=== PATIENT | male | born 1975 | race Caucasian/White ===

== ENCOUNTER 2017-10-07 13:25 | Emergency (ER) | payer OTHER ==
[2017-10-07] MEDS ORDERED: ACETAMINOPHEN TAB 500 MG TAB PO STA (14:26)
[2017-10-07] MEDS ORDERED: SODIUM CHLORIDE 0.9% 500 ML IV ONE (15:22)
[2017-10-07] MEDS ORDERED: CLINDAMYCIN 600 MG in DEXTROSE 5% IN WATER 50 ML IVPB STA ×2 (15:22)
[2017-10-07] MEDS ORDERED: HYDROcodone/APAP 5-325MG 1 EACH TAB PO STA (15:59)
--- NOTE | 2017-10-07 15:59 | ED ---
General Adult HPI - General Chief complaint: Fever Stated complaint: Fever Time Seen by Provider: 10/07/17 15:14 Source: patient Mode of arrival: wheelchair Limitations: no limitations - History of Present Illness Initial comments: This is a 42-year-old male with a history of multiple dental problems who presents emergency room for high fevers and left sided lower jaw pain. He states it started a few days ago and is gradually worsened. He has an appointment with his dentist in 3 days however stated that he get so bad that he decided come emergency department. He was to fevers at home and chills. He denies any swelling or purulent drainage. He denies any cough or shortness of breath. No lightheadedness or dizziness. No other complaints. - Related Data Home Medications Medication Instructions Recorded Confirmed clonazePAM [KlonoPIN] 0.5 mg PO BID 11/22/14 10/07/17 Albuterol Sulfate [Proair Hfa] 1 - 2 puff INHALATION RT-QID PRN 10/07/17 Ibuprofen [Motrin] 800 mg PO TID PRN 10/07/17 10/07/17 Omeprazole [PriLOSEC] 20 mg PO DAILY 10/07/17 10/07/17 Previous Rx's Medication Instructions Recorded Clindamycin HCl [Cleocin] 600 mg PO Q8H #42 cap 10/07/17 HYDROcodone/APAP 5-325MG [[place] 1 tab PO Q6HR PRN #10 tab 10/07/17 5-325] Allergies Allergy/AdvReac Type Severity Reaction Status Date / Time Penicillins Allergy Anaphylaxis Verified 10/07/17 15:31 Review of Systems ROS Statement: Those systems with pertinent positive or pertinent negative responses have been documented in the HPI. ROS Other: All systems not noted in ROS Statement are negative. Past Medical History Past Medical History: Asthma History of Any Multi-Drug Resistant Organisms: None Reported Past Surgical History: No Surgical Hx Reported Past Psychological History: ADD/ADHD, Anxiety Smoking Status: Former smoker Past Alcohol Use History: None Reported Past Drug Use History: Marijuana General Exam - General Exam Comments Initial Comments: Constitutional: Awake alert Appears comfortable Head: Normocephalic atraumatic Eyes: no conjunctival injection No scleral icterus EOMI ENT: Oropharynx is nonerythematous, there are multiple dental caries to the low incisors and lateral incisors on the lower jaw. There is surrounding erythema and inflammation around the teeth. There is no pocket or abscess is identified in the buccal mucosa. No abscess along the gingiva. The rest of the patient's teeth are removed. Neck: No JVD Supple Heart: Regular rate rhythm normal S1-S2 no murmurs Lungs: Clear to auscultation bilaterally No wheezing No rales Abdomen: Soft nondistended nontender Extremities: Non edematous DP pulses intact Radial pulses intact Neuro: A&Ox3 No focal neurologic deficits Psych: Appropriate mood and affect Limitations: no limitations Course Vital Signs 10/07/17 10/07/17 14:23 16:21 Temperature 103.1 F H 98.2 F Pulse Rate 102 H 90 Respiratory 20 16 Rate Blood Pressure 110/61 135/75 O2 Sat by Pulse 99 98 Oximetry Medical Decision Making - Medical Decision Making This is a 42-year-old male who presented for left jaw pain. The patient did not have evidence for abscess on exam. Does have a leukocytosis and was febrile and thus patient was stated on an IV antibiotics. The patient is to be sent home on clindamycin 600 mg 3 times a day. He has no point with his dentist in a few days. I told him to continue to go see his dentist however was given oral surgery in case they were unable to treat him. Told to return if worsening or change symptoms requested transfer. - Lab Data Result diagrams: 10/07/17 15:56 10/07/17 15:56 Lab Results 10/07/17 10/07/17 Range/Units 15:56 15:56 WBC 15.6 H (3.8-10.6) k/uL RBC 4.30 (4.30-5.90) m/uL Hgb 13.8 (13.0-17.5) gm/dL Hct 40.7 (39.0-53.0) % MCV 94.7 (80.0-100.0) fL MCH 32.2 (25.0-35.0) pg MCHC 33.9 (31.0-37.0) g/dL RDW 13.6 (11.5-15.5) % Plt Count 182 (150-450) k/uL Neutrophils % 88 % Lymphocytes % 3 % Monocytes % 7 % Eosinophils % 1 % Basophils % 0 % Neutrophils # 13.7 H (1.3-7.7) k/uL Lymphocytes # 0.5 L (1.0-4.8) k/uL Monocytes # 1.2 H (0-1.0) k/uL Eosinophils # 0.1 (0-0.7) k/uL Basophils # 0.0 (0-0.2) k/uL Sodium 136 L (137-145) mmol/L Potassium 3.8 (3.5-5.1) mmol/L Chloride 100 (98-107) mmol/L Carbon Dioxide 24 (22-30) mmol/L Anion Gap 12 mmol/L BUN 5 L (9-20) mg/dL Creatinine 0.66 (0.66-1.25) mg/dL Est GFR (MDRD) Af Amer >60 (>60 ml/min/1.73 sqM) Est GFR (MDRD) Non-Af >60 (>60 ml/min/1.73 sqM) Glucose 107 H (74-99) mg/dL Calcium 8.8 (8.4-10.2) mg/dL Total Bilirubin 2.0 H (0.2-1.3) mg/dL AST 21 (17-59) U/L ALT 36 (21-72) U/L Alkaline Phosphatase 65 (38-126) U/L Total Protein 6.3 (6.3-8.2) g/dL Albumin 4.0 (3.5-5.0) g/dL Disposition Clinical Impression: Periodontitis Disposition: HOME SELF-CARE Condition: Stable Instructions: Toothache (ED) Prescriptions: Clindamycin HCl [Cleocin] 600 mg PO Q8H #42 cap HYDROcodone/APAP 5-325MG [[place] 5-325] 1 tab PO Q6HR PRN #10 tab PRN Reason: Pain Referrals: Nonstaff,Physician [Primary Care Provider] - 1-2 days Obed Chowdhury DDS [STAFF PHYSICIAN] - 1-2 days
[2017-10-07 16:09] LABS: Basophils % (A) 0 %; Eosinophils # (A) 0.1 k/uL (0-0.7); Eosinophils % (A) 1 %; HCT 40.7 % (39.0-53.0); HGB 13.8 gm/dL (13.0-17.5); Lymphocytes # (A) 0.5 k/uL (1.0-4.8); Lymphocytes % (A) 3 %; MCH 32.2 pg (25.0-35.0); MCHC 33.9 g/dL (31.0-37.0); MCV 94.7 fL (80.0-100.0); Mean Platelet Volume 7.4; Monocytes # (A) 1.2 k/uL (0-1.0); Monocytes % (A) 7 %; Neutrophils # (A) 13.7 k/uL (1.3-7.7); Neutrophils % (A) 88 %; Platelet Count 182 k/uL (150-450); RDW 13.6 % (11.5-15.5); WBC 15.6 k/uL (3.8-10.6)
[2017-10-07 16:19] LABS: ALT 36 U/L (21-72); AST 21 U/L (17-59); Alkaline Phosphatase 65 U/L (38-126); Anion Gap 12 mmol/L; Blood Urea Nitrogen 5 mg/dL (9-20); Calcium 8.8 mg/dL (8.4-10.2); Carbon Dioxide 24 mmol/L (22-30); Chloride 100 mmol/L (98-107); Glucose 107 mg/dL (74-99); Potassium 3.8 mmol/L (3.5-5.1); Sodium 136 mmol/L (137-145); Total Protein 6.3 g/dL (6.3-8.2)
[2017-10-07 16:55] VITALS: BP 125/78; PULSE 89; RESP 18; TEMP 97.5
== END 2017-10-07 17:22 | disposition home or self-care (01) ==
LOC: EC 13:25
DX: K05.30 Chronic periodontitis, unspecified (principal); D72.829 Elevated white blood cell count, unspecified; K02.9 Dental caries, unspecified; R50.9 Fever, unspecified; Z87.891 Personal history of nicotine dependence; Z79.899 Other long term (current) drug therapy; Z88.0 Allergy status to penicillin
CPT/HCPCS: 36415; 80053; 85025; 96365; 99283

== ENCOUNTER 2018-01-18 11:13 | Emergency (ER) | payer OTHER ==
[2018-01-18] MEDS ORDERED: IPRATROPIUM-ALBUTEROL 3 ML NEB INHALATION STA (11:28)
--- NOTE | 2018-01-18 11:30 | ED ---
URI HPI - General Chief Complaint: Upper Respiratory Infection Stated Complaint: URI Time Seen by Provider: 01/18/18 11:18 Source: patient, RN notes reviewed Mode of arrival: ambulatory Limitations: no limitations - History of Present Illness Initial Comments: 42-year-old male presents emergency Department with chief complaint of cough congestion. Patient states symptoms started last Monday. Patient states he just finished azithromycin yesterday states he is not feeling better he states that she feels worse. Patient does have history of asthma states that he occasionally smokes. Patient states that he's had mild nasal congestion, postnasal drainage or productive cough. His cough is worse when he lays down. He was given Tessalon Perles minimal relief. He did try some NyQuil with no relief. Patient reports on-and-off fever and chills. Denies chest pain, headache, dizziness, nausea, vomiting diarrhea constipation. - Related Data Home Medications Medication Instructions Recorded Confirmed clonazePAM [KlonoPIN] 0.5 mg PO BID 11/22/14 01/18/18 Albuterol Sulfate [Proair Hfa] 1 - 2 puff INHALATION RT-QID PRN 10/07/17 Ibuprofen [Motrin] 800 mg PO TID PRN 10/07/17 01/18/18 Omeprazole [PriLOSEC] 20 mg PO DAILY 10/07/17 01/18/18 Fluticasone Nasal [place] [Flonase 2 spr EA NOSTRIL DAILY 01/18/18 01/18/18 Nasal [place]] Allergies Allergy/AdvReac Type Severity Reaction Status Date / Time Penicillins Allergy Anaphylaxis Verified 01/18/18 11:28 Review of Systems ROS Statement: Those systems with pertinent positive or pertinent negative responses have been documented in the HPI. ROS Other: All systems not noted in ROS Statement are negative. Past Medical History Past Medical History: Asthma History of Any Multi-Drug Resistant Organisms: None Reported Past Surgical History: No Surgical Hx Reported Past Psychological History: ADD/ADHD, Anxiety Smoking Status: Former smoker Past Alcohol Use History: None Reported Past Drug Use History: Marijuana General Exam Limitations: no limitations General appearance: alert, in no apparent distress Head exam: Present: atraumatic, normocephalic, normal inspection Eye exam: Present: normal appearance, PERRL, EOMI. Absent: scleral icterus, conjunctival injection, periorbital swelling ENT exam: Present: normal exam, normal oropharynx, mucous membranes moist Neck exam: Present: normal inspection, full ROM. Absent: tenderness, meningismus, lymphadenopathy Respiratory exam: Present: rhonchi. Absent: normal lung sounds bilaterally, respiratory distress, wheezes, rales, stridor Cardiovascular Exam: Present: regular rate, normal rhythm, normal heart sounds. Absent: systolic murmur, diastolic murmur, rubs, gallop, clicks Skin exam: Present: warm, dry, intact, normal color. Absent: rash Course Vital Signs 01/18/18 01/18/18 01/18/18 11:15 11:58 12:14 Temperature 98.0 F Pulse Rate 100 93 Respiratory 20 18 20 Rate Blood Pressure 128/79 O2 Sat by Pulse 100 Oximetry 01/18/18 12:24 Temperature Pulse Rate 93 Respiratory Rate Blood Pressure O2 Sat by Pulse Oximetry Medical Decision Making - Medical Decision Making 42-year-old male present emergency department for cough congestion. Patient's influenza B+. Chest x-ray unremarkable. Patient will be discharged at this time his symptoms started 5 days ago. Patient will continue time Motrin over- the-counter along with [id number] cough and cold medications. Return parameters were discussed. - Lab Data Lab Results 01/18/18 Range/Units 11:45 Influenza Type A RNA Not Detected (Not Detectd) Influenza Type B (PCR) Detected H (Not Detectd) Disposition Clinical Impression: Influenza Disposition: HOME SELF-CARE Condition: Stable Instructions: Influenza (ED) Additional Instructions: Please return to the Emergency Department if symptoms worsen or any other concerns. Is patient prescribed a controlled substance at d/c from ED?: No Referrals: Nonstaff,Physician [Primary Care Provider] - 1-2 days Time of Disposition: 12:34
--- NOTE | 2018-01-18 11:53 | XR ---
EXAMINATION TYPE: XR chest 2V DATE OF EXAM: 01/18/2018 COMPARISON: 01/08/2015 HISTORY: Cough, congestion, fever, and body aches TECHNIQUE: Frontal and lateral views of the chest are obtained. FINDINGS: There is no focal air space opacity, pleural effusion, or pneumothorax seen. The cardiac silhouette size is within normal limits. The osseous structures are intact. IMPRESSION: No acute cardiopulmonary process.
[2018-01-18 12:40] VITALS: BP 132/74; PULSE 98; RESP 18; TEMP 98.8
== END 2018-01-18 12:38 | disposition home or self-care (01) ==
LOC: EC 11:13
DX: J10.1 Influenza due to other identified influenza virus with other respiratory manifestations (principal); J45.909 Unspecified asthma, uncomplicated; F41.9 Anxiety disorder, unspecified; F17.200 Nicotine dependence, unspecified, uncomplicated; Z79.51 Long term (current) use of inhaled steroids; Z79.899 Other long term (current) drug therapy; Z88.0 Allergy status to penicillin
CPT/HCPCS: 71046; 87502; 94640; 99284

== ENCOUNTER 2020-08-14 08:43 | Emergency (ER) | payer OTHER ==
[2020-08-14 08:57] VITALS: RESP 18; TEMP 99.1
[2020-08-14] MEDS ORDERED: KETOROLAC 15 MG/ML 1 ML VIAL IM STA (09:19)
[2020-08-14] MEDS ORDERED: ACET/COD 300 MG/30 MG STARTER PACK 6 TAB BTL PO STA (09:19)
[2020-08-14] MEDS ORDERED: ORPHENADRINE 30 MG/ML 2 ML VIAL IM STA (09:19)
[2020-08-14 09:45] LABS: Appearance,Urine Clear (Clear); Bilirubin,Urine Negative (Negative); Blood,Urine Negative (Negative); Color,Urine Light Yellow; Glucose,Urine (UA) Negative (Negative); Ketones,Urine Negative (Negative); Leukocyte Esterase,Urine Negative (Negative); Nitrite,Urine Negative (Negative); PH, Urine 7.5 (5.0-8.0); Protein,Urine Negative (Negative); Specific Gravity,Urine 1.004 (1.001-1.035); Urobilinogen,Urine <2.0 mg/dL (<2.0)
--- NOTE | 2020-08-14 09:53 | ED ---
Back Pain HPI - General Chief Complaint: Back Pain/Injury Stated Complaint: back pain Time Seen by Provider: 08/14/20 09:04 Source: patient, RN notes reviewed, old records reviewed Limitations: no limitations - History of Present Illness Initial Comments: 45-year-old male presents return today with chronic lower back pain. He reports is an acute exacerbation over the past 4 days. 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 Patient reports his been told she's had degenerative disease. Denies any fall or trauma to the back. Has not had recent imaging on his back in many years. Patient states that he's been taking Motrin without any relief for pain. Does report some occasional radiculopathy symptoms on bilateral legs. Denies saddle anesthesia. - Related Data Home Medications Medication Instructions Recorded Confirmed clonazePAM [KlonoPIN] 0.25 mg PO DAILY 11/22/14 08/14/20 Albuterol Sulfate [Proair Hfa] 1 - 2 puff INHALATION RT-QID PRN 10/07/17 08/14/20 Ibuprofen [Motrin] 800 mg PO TID PRN 10/07/17 08/14/20 Omeprazole [PriLOSEC] 20 mg PO AC-BID 10/07/17 08/14/20 Fluticasone Nasal [place] [Flonase 2 spr EA NOSTRIL DAILY PRN 01/18/18 08/14/20 Nasal [place]] Cetirizine HCl 10 mg PO DAILY 08/14/20 08/14/20 Ondansetron [Zofran] 4 mg PO Q12H PRN 08/14/20 08/14/20 clonazePAM [KlonoPIN] 0.125 mg PO DAILY@1500 08/14/20 08/14/20 Previous Rx's Medication Instructions Recorded Cyclobenzaprine [Flexeril] 10 mg PO TID #12 tab 08/14/20 Ibuprofen [Motrin] 600 mg PO Q8HR PRN #20 tab 08/14/20 dexAMETHasone [Dexamethasone] 0.75 mg PO DAILY #12 tab 08/14/20 Allergies Allergy/AdvReac Type Severity Reaction Status Date / Time Penicillins Allergy Anaphylaxis Verified 08/14/20 10:00 Review of Systems ROS Statement: Those systems with pertinent positive or pertinent negative responses have been documented in the HPI. ROS Other: All systems not noted in ROS Statement are negative. Past Medical History Past Medical History: Asthma Additional Past Medical History / Comment(s): back pain -ddd History of Any Multi-Drug Resistant Organisms: None Reported Past Surgical History: No Surgical Hx Reported Past Psychological History: ADD/ADHD, Anxiety Smoking Status: Current every day smoker Past Alcohol Use History: None Reported Past Drug Use History: Marijuana General Exam - General Exam Comments Initial Comments: 45 year old male, no acute distress. Limitations: no limitations General appearance: alert, in no apparent distress Head exam: Present: atraumatic, normocephalic, normal inspection Eye exam: Present: normal appearance, PERRL, EOMI. Absent: scleral icterus, conjunctival injection, periorbital swelling ENT exam: Present: normal exam, mucous membranes moist Neck exam: Present: normal inspection. Absent: tenderness, meningismus, lymphadenopathy Respiratory exam: Present: normal lung sounds bilaterally. Absent: respiratory distress, wheezes, rales, rhonchi, stridor Cardiovascular Exam: Present: regular rate, normal rhythm, normal heart sounds. Absent: systolic murmur, diastolic murmur, rubs, gallop, clicks GI/Abdominal exam: Present: soft, normal bowel sounds. Absent: distended, tenderness, guarding, rebound, rigid Extremities exam: Present: normal inspection, full ROM, normal capillary refill. Absent: tenderness, pedal edema, joint swelling, calf tenderness Back exam: Present: normal inspection Neurological exam: Present: alert, oriented X3, CN II-XII intact Psychiatric exam: Present: normal affect, normal mood Skin exam: Present: warm, dry, intact, normal color. Absent: rash Course Vital Signs 08/14/20 08:55 Temperature 99.1 F Pulse Rate 95 Respiratory 18 Rate Blood Pressure 108/65 O2 Sat by Pulse 100 Oximetry Medical Decision Making - Medical Decision Making 45-year-old male presents emergency department today concern for lower back pain. Patient reports that he's had chronic back pain for 12 years. Patient has been taking without any relief of pain. At this time patient's back exam shows tenderness over spine. X-ray shows no evidence of acute fracture. Given IM Toradol and Norflex and by mouth starter pack of pain medication. Advised Patient to apply heat and ice to the back and take medication as prescribed. Discussed return parameters. - Lab Data Lab Results 08/14/20 Range/Units 09:38 Urine Color Light Yellow Urine Appearance Clear (Clear) Urine pH 7.5 (5.0-8.0) Ur Specific [place] 1.004 (1.001-1.035) Urine Protein Negative (Negative) Urine Glucose (UA) Negative (Negative) Urine Ketones Negative (Negative) Urine Blood Negative (Negative) Urine Nitrite Negative (Negative) Urine Bilirubin Negative (Negative) Urine Urobilinogen <2.0 (<2.0) mg/dL Ur Leukocyte Esterase Negative (Negative) - Radiology Data Radiology results: report reviewed Normal Three-view lumbar spine Disposition Clinical Impression: Back pain Disposition: ADMITTED IP TO THIS [facility] Condition: Good Instructions (If sedation given, give patient instructions): Acute Low Back Pain (ED) Additional Instructions: Please use medication as discussed. Please follow up with family doctor if symptoms have not improved over the next two days. Please return to the emergency room if your symptoms increase or worsen or for any other concerns. Prescriptions: dexAMETHasone [Dexamethasone] 0.75 mg PO DAILY #12 tab Cyclobenzaprine [Flexeril] 10 mg PO TID #12 tab Ibuprofen [Motrin] 600 mg PO Q8HR PRN #20 tab PRN Reason: Pain Is patient prescribed a controlled substance at d/c from ED?: No Referrals: Nonstaff,Physician [Primary Care Provider] - 1-2 days Time of Disposition: 10:23
--- NOTE | 2020-08-14 09:53 | XR ---
EXAMINATION TYPE: XR lumbar spine 2 or 3V DATE OF EXAM: 08/14/2020 COMPARISON: None HISTORY: Low back pain TECHNIQUE: 3 view lumbar spine FINDINGS: There 5 lumbar-type vertebral bodies. Pedicles are intact. Disc heights are preserved. Vert ebral body heights are preserved. Alignment is normal. IMPRESSION: 1. Normal 3 view lumbar spine.
[2020-08-14 10:42] VITALS: BP 125/85; PULSE 84
== END 2020-08-14 10:43 | disposition other institution (70) ==
LOC: EC 08:43
DX: M54.5 Low back pain (principal); J45.909 Unspecified asthma, uncomplicated; F41.9 Anxiety disorder, unspecified; F90.9 Attention-deficit hyperactivity disorder, unspecified type; F17.200 Nicotine dependence, unspecified, uncomplicated; Z79.899 Other long term (current) drug therapy
CPT/HCPCS: 81003; 72100; 99285; 96372 ×2; J2360; J1885

== ENCOUNTER 2021-06-05 07:48 | Emergency (ER) | payer OTHER ==
[2021-06-05 07:52] VITALS: BP 146/83; PULSE 81; RESP 20; TEMP 97.4
[2021-06-05] MEDS ORDERED: ORPHENADRINE 30 MG/ML 2 ML VIAL IM STA (08:17)
[2021-06-05] MEDS ORDERED: KETOROLAC 15 MG/ML 1 ML VIAL IM STA (08:17)
[2021-06-05] MEDS ORDERED: predniSONE 50 MG TAB PO STA (08:18)
--- NOTE | 2021-06-05 08:20 | ED ---
General Adult HPI - General Chief complaint: Back Pain/Injury Stated complaint: back injury Time Seen by Provider: 06/05/21 07:53 Source: patient, RN notes reviewed Mode of arrival: ambulatory Limitations: no limitations - History of Present Illness Initial comments: 46-year-old male presents to the emergency room for a chief complaint of back pain. Patient states that he has chronic degenerative disc disease and back pain for the past 13 years. However 3 days ago he was at work and was trying to lift a heavy box. States it started to slip and he jerks the box upwards and felt a sudden pain in his low back. States over the past couple days he has had a sharp shooting pain that radiates down the left leg as well as tingling of the left foot. Patient states he has had sciatica before, feel similar. Patient denies any new onset bladder or bowel changes, saddle anesthesia, fevers or chills. Denies weakness in the leg but does admit is painful to put weight on the left leg. Patient states she takes Motrin for pain - Related Data Home Medications Medication Instructions Recorded Confirmed clonazePAM [KlonoPIN] 0.25 mg PO DAILY 11/22/14 08/14/20 Albuterol Sulfate [Proair Hfa] 1 - 2 puff INHALATION RT-QID PRN 10/07/17 08/14/20 Ibuprofen [Motrin] 800 mg PO TID PRN 10/07/17 08/14/20 Omeprazole [PriLOSEC] 20 mg PO AC-BID 10/07/17 08/14/20 Fluticasone Nasal [place] [Flonase 2 spr EA NOSTRIL DAILY PRN 01/18/18 08/14/20 Nasal [place]] Cetirizine HCl 10 mg PO DAILY 08/14/20 08/14/20 Ondansetron [Zofran] 4 mg PO Q12H PRN 08/14/20 08/14/20 clonazePAM [KlonoPIN] 0.125 mg PO DAILY@1500 08/14/20 08/14/20 Previous Rx's Medication Instructions Recorded Cyclobenzaprine [Flexeril] 10 mg PO TID #12 tab 08/14/20 Ibuprofen [Motrin] 600 mg PO Q8HR PRN #20 tab 08/14/20 dexAMETHasone 0.75 mg PO DAILY #12 tab 08/14/20 Cyclobenzaprine [Flexeril] 10 mg PO TID #20 tab 06/05/21 predniSONE 50 mg PO DAILY #5 tablet 06/05/21 Allergies Allergy/AdvReac Type Severity Reaction Status Date / Time Penicillins Allergy Anaphylaxis Verified 06/05/21 07:52 Review of Systems ROS Statement: Those systems with pertinent positive or pertinent negative responses have been documented in the HPI. ROS Other: All systems not noted in ROS Statement are negative. Past Medical History Past Medical History: Asthma Additional Past Medical History / Comment(s): back pain -ddd History of Any Multi-Drug Resistant Organisms: None Reported Past Surgical History: No Surgical Hx Reported Past Psychological History: ADD/ADHD, Anxiety Smoking Status: Current every day smoker Past Alcohol Use History: None Reported Past Drug Use History: Marijuana General Exam Limitations: no limitations General appearance: alert, in no apparent distress Head exam: Present: atraumatic Eye exam: Present: normal appearance, PERRL, EOMI. Absent: scleral icterus, conjunctival injection ENT exam: Present: normal exam, mucous membranes moist Neck exam: Present: normal inspection, full ROM. Absent: tenderness Respiratory exam: Present: normal lung sounds bilaterally. Absent: respiratory distress, wheezes Cardiovascular Exam: Present: regular rate, normal rhythm, normal heart sounds GI/Abdominal exam: Present: soft, normal bowel sounds. Absent: distended, tenderness Neurological exam: Present: alert Course Vital Signs 06/05/21 07:50 Temperature 97.4 F L Pulse Rate 81 Respiratory 20 Rate Blood Pressure 146/83 O2 Sat by Pulse 100 Oximetry Medical Decision Making - Medical Decision Making vitals are stable. Patient is well appearing. Neurovascular status intact in the left lower extremity. DP pulse 2+ left leg. Capillary refill less than 2 seconds. Positive straight leg raise test. Strength 5 out of 5 in bilateral lower extremities. Denies fevers or chills, saddle anesthesia, weakness of the legs, or fevers. X-ray from earlier this year was reviewed which was normal. Symptoms are consistent with acute on chronic back pain with radicular symptoms. At this time patient will be started on prednisone and Tylenol 3. We'll hold NSAIDs until prednisone is done. Patient will follow up with his doctor. He will return here for any worsening symptoms. He will also be given referral to orthopedics as he will likely need another MRI. Disposition Clinical Impression: Acute exacerbation of chronic low back pain, Lumbar radicular pain Disposition: HOME SELF-CARE Condition: Good Instructions (If sedation given, give patient instructions): Sciatica (ED) Additional Instructions: Take Tylenol instead of Motrin for pain especially on the days that you are taking prednisone. If pain is severe take Tylenol 3. Take muscle relaxer as needed but do not drive or operate machinery while taking this. Follow up with orthopedics. Given any worsening symptoms return to the emergency room. Prescriptions: Cyclobenzaprine [Flexeril] 10 mg PO TID #20 tab predniSONE 50 mg PO DAILY #5 tablet Is patient prescribed a controlled substance at d/c from ED?: No Referrals: Nonstaff,Physician [Primary Care Provider] - 1-2 days Tommy Bruno DO [Doctor of Osteopathic Medicine] - 1-2 days Time of Disposition: 09:01
[2021-06-05] MEDS ORDERED: ACET/COD 300 MG/30 MG STARTER PACK 6 TAB BTL PO STA (09:00)
== END 2021-06-05 09:03 | disposition home or self-care (01) ==
LOC: EC 07:48
DX: G89.29 Other chronic pain (principal); M54.16 Radiculopathy, lumbar region; J45.909 Unspecified asthma, uncomplicated; F12.90 Cannabis use, unspecified, uncomplicated; F17.200 Nicotine dependence, unspecified, uncomplicated; Z79.51 Long term (current) use of inhaled steroids; Z79.899 Other long term (current) drug therapy
CPT/HCPCS: 96372 ×2; 99283; J2360; J1885; J7512

== ENCOUNTER 2021-12-13 08:10 | Emergency (ER) | payer OTHER ==
[2021-12-13 08:13] VITALS: BP 138/86; PULSE 83; RESP 18; TEMP 97.6
--- NOTE | 2021-12-13 08:38 | ED ---
Neck Injury/Pain HPI - General Chief Complaint: Neck Pain/Injury Stated Complaint: Neck Pain Time Seen by Provider: 12/13/21 08:13 Source: patient, RN notes reviewed Mode of arrival: ambulatory Limitations: no limitations - History of Present Illness Initial Comments: This a 46-year-old male presents emergency Department chief complaint of left sided neck, shoulder pain. Patient's states symptoms started over the last 2-3 weeks states progressively getting worse. He states it does come and go at times but states is exacerbated by movement. Patient states he had an issue presents for 7 years ago which she saw a neurosurgeon at a time but no acute structural issues had physical therapy states things got greatly improved. Patient states he has pain rates from left-sided neck and left shoulder left arm. He states that it spasms has increasing pain no associated weakness no headache no blurred vision other associated complaints. - Related Data Home Medications Medication Instructions Recorded Confirmed clonazePAM [KlonoPIN] 0.25 mg PO DAILY 11/22/14 08/14/20 Albuterol Sulfate [Proair Hfa] 1 - 2 puff INHALATION RT-QID PRN 10/07/17 08/14/20 Ibuprofen [Motrin] 800 mg PO TID PRN 10/07/17 08/14/20 Omeprazole [PriLOSEC] 20 mg PO AC-BID 10/07/17 08/14/20 Fluticasone Nasal [place] [Flonase 2 spr EA NOSTRIL DAILY PRN 01/18/18 08/14/20 Nasal [place]] Cetirizine HCl 10 mg PO DAILY 08/14/20 08/14/20 Ondansetron [Zofran] 4 mg PO Q12H PRN 08/14/20 08/14/20 clonazePAM [KlonoPIN] 0.125 mg PO DAILY@1500 08/14/20 08/14/20 Previous Rx's Medication Instructions Recorded Cyclobenzaprine [Flexeril] 10 mg PO TID #12 tab 08/14/20 Ibuprofen [Motrin] 600 mg PO Q8HR PRN #20 tab 08/14/20 dexAMETHasone 0.75 mg PO DAILY #12 tab 08/14/20 Cyclobenzaprine [Flexeril] 10 mg PO TID #20 tab 06/05/21 predniSONE 50 mg PO DAILY #5 tablet 06/05/21 Cyclobenzaprine [Flexeril] 10 mg PO TID PRN #15 tab 12/13/21 predniSONE 50 mg PO DAILY #5 tab 12/13/21 Allergies Allergy/AdvReac Type Severity Reaction Status Date / Time Penicillins Allergy Anaphylaxis Verified 12/13/21 08:13 Review of Systems ROS Statement: Those systems with pertinent positive or pertinent negative responses have been documented in the HPI. ROS Other: All systems not noted in ROS Statement are negative. Past Medical History Past Medical History: Asthma Additional Past Medical History / Comment(s): back pain -ddd History of Any Multi-Drug Resistant Organisms: None Reported Past Surgical History: No Surgical Hx Reported Past Psychological History: ADD/ADHD, Anxiety Smoking Status: Current every day smoker Past Alcohol Use History: None Reported Past Drug Use History: Marijuana General Exam Limitations: no limitations General appearance: alert, in no apparent distress Head exam: Present: atraumatic, normocephalic, normal inspection Eye exam: Present: normal appearance, PERRL, EOMI. Absent: scleral icterus, conjunctival injection, periorbital swelling ENT exam: Present: normal exam, normal oropharynx, mucous membranes moist Neck exam: Present: normal inspection, tenderness (Left trapezius left cervical paraspinal), full ROM. Absent: meningismus, lymphadenopathy Respiratory exam: Present: normal lung sounds bilaterally. Absent: respiratory distress, wheezes, rales, rhonchi, stridor Cardiovascular Exam: Present: regular rate, normal rhythm, normal heart sounds. Absent: systolic murmur, diastolic murmur, rubs, gallop, clicks Extremities exam: Present: normal inspection, full ROM, normal capillary refill. Absent: tenderness, pedal edema, joint swelling, calf tenderness Back exam: Present: full ROM. Absent: tenderness, paraspinal tenderness, vertebral tenderness Neurological exam: Present: alert, oriented X3, CN II-XII intact, reflexes normal. Absent: motor sensory deficit Skin exam: Present: warm, dry, intact, normal color. Absent: rash Course Vital Signs 12/13/21 08:11 Temperature 97.6 F Pulse Rate 83 Respiratory 18 Rate Blood Pressure 138/86 O2 Sat by Pulse 100 Oximetry Medical Decision Making - Medical Decision Making CT of the cervical spine shows severe degenerative changes C5-C6, this is consistent with patient's radicular symptoms left arm, there is some inflammatory mucosal thickening of the left maxillary sinus. Patient does also have noticed sebaceous cysts which is seen on exam. Patient will follow-up with on-call orthospine we discharged with medications and return parameters were discussed. Disposition Clinical Impression: Degenerative cervical disc, Degenerative cervical spinal stenosis Disposition: HOME SELF-CARE Condition: Stable Instructions (If sedation given, give patient instructions): Cervical Radiculopathy (ED) Additional Instructions: Please return to the Emergency Department if symptoms worsen or any other concerns. Prescriptions: Cyclobenzaprine [Flexeril] 10 mg PO TID PRN #15 tab PRN Reason: Muscle Spasm predniSONE 50 mg PO DAILY #5 tab Is patient prescribed a controlled substance at d/c from ED?: No Referrals: Nonstaff,Physician [Primary Care Provider] - 1-2 days Alicia Blas DO [Doctor of Osteopathic Medicine] - 1-2 days Tommy Bruno DO [Doctor of Osteopathic Medicine] - 1-2 days Time of Disposition: 09:11
--- NOTE | 2021-12-13 08:54 | CT ---
EXAMINATION TYPE: CT cervical spine wo con DATE OF EXAM: 12/13/2021 COMPARISON: None available HISTORY: Neck pain, left radiculopathy. CT DLP: 325.8 mGycm Automated exposure control for dose reduction was used. TECHNIQUE: CT scan of the cervical spine is obtained without contrast, axial images are obtained, sa gittal and coronal reformatted images are also reviewed. FINDINGS: Preserved cervical curvature. No significant anterolisthesis or retrolisthesis. No definite vertebral body collapse or acute displaced fracture. Unremarkable atlantoaxial and atlantooccipital articulati ons. No facet dislocation or significant subluxation. Mild degenerative changes seen at C5-6 level with opposing endplate osteophytosis, slightly degenerat ed disc and mild uncovertebral osteoarthropathy. No significant facet osteoarthropathy. At C5-6 level: Posterior disc osteophyte complex, causing moderate to severe central spinal canal orquidea nosis and moderate bilateral neuroforaminal stenosis, more on the right side. No other significant cervical disc disease, central spinal canal stenosis or neuroforaminal stenosis. Unremarkable prevertebral soft tissue. Slightly obliterated left vallecula, nonspecific. Minimal art erial atherosclerotic calcifications. Suspected 17 mm sebaceous cyst is seen in the midline the back of the upper neck, please correlate cl inically. Severe fibrotic changes and paraseptal emphysematous changes are seen in the lung apex bila terally. Mucosal thickening of the left maxillary sinus. IMPRESSION: Degenerative changes at C5-6 level with spinal canal stenosis and neuroforaminal stenosis as detailed above, please correlate clinically. Further MRI assessment can be considered if clinically required. Other incidental findings as described above.
[2021-12-13] MEDS ORDERED: ACET/COD 300 MG/30 MG STARTER PACK 6 TAB BTL PO STA (09:11)
== END 2021-12-13 09:10 | disposition home or self-care (01) ==
LOC: EC 08:10
DX: M50.322 Other cervical disc degeneration at C5-C6 level (principal); M48.02 Spinal stenosis, cervical region; J45.909 Unspecified asthma, uncomplicated; F90.9 Attention-deficit hyperactivity disorder, unspecified type; F41.9 Anxiety disorder, unspecified; F17.200 Nicotine dependence, unspecified, uncomplicated; F12.90 Cannabis use, unspecified, uncomplicated; Z88.0 Allergy status to penicillin
CPT/HCPCS: 72125; 99283

== ENCOUNTER 2022-01-16 10:54 | Emergency (ER) | payer OTHER ==
[2022-01-16 10:59] VITALS: BP 128/81; PULSE 85; RESP 18; TEMP 97.7
[2022-01-16] MEDS ORDERED: ALBUTEROL NEBULIZED 2.5 MG/3 ML INHALATION STA (11:11)
[2022-01-16] MEDS ORDERED: ONDANSETRON ODT 4 MG TAB PO STA (11:27)
--- NOTE | 2022-01-16 11:37 | ED ---
URI HPI - General Chief Complaint: Upper Respiratory Infection Stated Complaint: Congestion, body aches Time Seen by Provider: 01/16/22 11:01 Source: patient, family Mode of arrival: ambulatory Limitations: no limitations - History of Present Illness Initial Comments: Patient is a 46-year-old male who presents to emergency department for evaluation of upper respiratory symptoms. Patient states his symptoms started on 01/11/22 and had not improved. He endorses chills, bodyaches, congestion, dry cough, shortness of breath with activity, and nausea. No leg pain or swelling. No vomiting. No loss of smell or taste. Patient initially had a sore throat which has resolved. He is not vaccinated for COVID-19 or the flu. He does have a history of asthma and uses his rescue inhaler when needed. Patient states he has been using it as well as nasal spray with some relief. - Related Data Home Medications Medication Instructions Recorded Confirmed clonazePAM [KlonoPIN] 0.25 mg PO DAILY 11/22/14 08/14/20 Albuterol Sulfate [Proair Hfa] 1 - 2 puff INHALATION RT-QID PRN 10/07/17 08/14/20 Ibuprofen [Motrin] 800 mg PO TID PRN 10/07/17 08/14/20 Omeprazole [PriLOSEC] 20 mg PO AC-BID 10/07/17 08/14/20 Fluticasone Nasal [place] [Flonase 2 spr EA NOSTRIL DAILY PRN 01/18/18 08/14/20 Nasal [place]] Cetirizine HCl 10 mg PO DAILY 08/14/20 08/14/20 Ondansetron [Zofran] 4 mg PO Q12H PRN 08/14/20 08/14/20 clonazePAM [KlonoPIN] 0.125 mg PO DAILY@1500 08/14/20 08/14/20 Previous Rx's Medication Instructions Recorded Cyclobenzaprine [Flexeril] 10 mg PO TID #12 tab 08/14/20 Ibuprofen [Motrin] 600 mg PO Q8HR PRN #20 tab 08/14/20 dexAMETHasone 0.75 mg PO DAILY #12 tab 08/14/20 Cyclobenzaprine [Flexeril] 10 mg PO TID #20 tab 06/05/21 predniSONE 50 mg PO DAILY #5 tablet 06/05/21 Cyclobenzaprine [Flexeril] 10 mg PO TID PRN #15 tab 12/13/21 predniSONE 50 mg PO DAILY #5 tab 12/13/21 Albuterol Nebulized [Ventolin 2.5 mg INHALATION Q6H 6 Days #75 ml 01/16/22 Nebulized] Ondansetron Odt [Zofran Odt] 4 mg PO Q8HR PRN #15 tab 01/16/22 Allergies Allergy/AdvReac Type Severity Reaction Status Date / Time Penicillins Allergy Anaphylaxis Verified 01/16/22 10:59 Review of Systems ROS Statement: Those systems with pertinent positive or pertinent negative responses have been documented in the HPI. ROS Other: All systems not noted in ROS Statement are negative. Past Medical History Past Medical History: Asthma Additional Past Medical History / Comment(s): back pain -ddd History of Any Multi-Drug Resistant Organisms: None Reported Past Surgical History: No Surgical Hx Reported Past Psychological History: ADD/ADHD, Anxiety Smoking Status: Current every day smoker Past Alcohol Use History: None Reported Past Drug Use History: Marijuana General Exam Limitations: no limitations General appearance: alert, in no apparent distress Head exam: Present: atraumatic, normocephalic, normal inspection Eye exam: Present: normal appearance, PERRL, EOMI. Absent: scleral icterus, conjunctival injection, periorbital swelling ENT exam: Present: normal oropharynx Neck exam: Present: normal inspection Respiratory exam: Present: normal lung sounds bilaterally. Absent: respiratory distress, wheezes, rales, rhonchi, stridor Cardiovascular Exam: Present: regular rate, normal rhythm, normal heart sounds. Absent: systolic murmur, diastolic murmur, rubs, gallop, clicks GI/Abdominal exam: Present: soft, normal bowel sounds. Absent: distended, tenderness, guarding, rebound, rigid Extremities exam: Present: normal inspection. Absent: calf tenderness Neurological exam: Present: alert, oriented X3, CN II-XII intact Psychiatric exam: Present: normal affect, normal mood Skin exam: Present: warm, dry, intact, normal color. Absent: rash Course Vital Signs 01/16/22 01/16/22 01/16/22 10:55 11:28 11:38 Temperature 97.7 F Pulse Rate 85 85 85 Respiratory 18 Rate Blood Pressure 128/81 O2 Sat by Pulse 100 Oximetry Medical Decision Making - Medical Decision Making This is a 46-year-old male who presents with upper respiratory symptoms. Thorough history and examination were performed. Patient is well-appearing and in no apparent distress. He is afebrile. Pulse ox is 100% on room air. Lungs are clear to auscultation bilaterally. COVID-19 and influenza A/B are not detected. Chest x-ray was obtained for shortness of breath which is negative for acute process. This appears to be an upper respiratory infection of viral etiology. Patient given breathing treatment and Zofran. Patient states he feels like his lungs have opened up significantly from the treatment. Upon questioning patient states he does have a nebulizer at home. I will discharge him with albuterol for the nebulizer. I will also send him home with Zofran. Return parameters discussed. Patient verbalizes understanding and is agreeable to this plan. Dr. Haskins is my attending. - Lab Data Lab Results 01/16/22 Range/Units 11:20 Influenza Type A (PCR) Not Detected (Not Detectd) Influenza Type B (PCR) Not Detected (Not Detectd) RSV (PCR) Not Detected (Not Detectd) SARS-CoV-2 (PCR) Not Detected (Not Detectd) Disposition Clinical Impression: Upper respiratory tract infection Disposition: HOME SELF-CARE Condition: Good Instructions (If sedation given, give patient instructions): Upper Respiratory Infection (ED) Additional Instructions: Please take medication as directed. Continue to use your nasal spray for congestion at home. Return to the emergency department if you experience new, concerning, or worsening symptoms. Prescriptions: Albuterol Nebulized [Ventolin Nebulized] 2.5 mg INHALATION Q6H 6 Days #75 ml Ondansetron Odt [Zofran Odt] 4 mg PO Q8HR PRN #15 tab PRN Reason: Nausea Is patient prescribed a controlled substance at d/c from ED?: No Referrals: Nonstaff,Physician [Primary Care Provider] - 1-2 days
--- NOTE | 2022-01-16 11:41 | XR ---
EXAMINATION TYPE: XR chest 2V DATE OF EXAM: 01/16/2022 COMPARISON: 01/18/2018 INDICATION: Short of breath TECHNIQUE: Frontal and lateral views of the chest are obtained. FINDINGS: The heart size is normal. The pulmonary vasculature is normal. The lungs are clear. IMPRESSION: 1. No acute pulmonary process. Follow-up can be performed as clinically indicated.
== END 2022-01-16 12:33 | disposition home or self-care (01) ==
LOC: EC 10:54
DX: J06.9 Acute upper respiratory infection, unspecified (principal); J45.909 Unspecified asthma, uncomplicated; F17.200 Nicotine dependence, unspecified, uncomplicated; Z20.822 Contact with and (suspected) exposure to COVID-19; Z88.0 Allergy status to penicillin
CPT/HCPCS: 71046; 87636; 99285

== ENCOUNTER 2022-10-17 13:44 | Emergency (ER) | payer OTHER ==
[2022-10-17] MEDS ORDERED: HYDROmorphone 1 MG/ML 1 ML SYRINGE IM STA (15:02)
[2022-10-17] MEDS ORDERED: KETOROLAC 15 MG/ML 1 ML VIAL IM STA (15:02)
--- NOTE | 2022-10-17 15:04 | ED ---
General Adult HPI - General Chief complaint: Back Pain/Injury Stated complaint: Lower Back Pain Time Seen by Provider: 10/17/22 14:55 Source: patient, RN notes reviewed Mode of arrival: ambulatory Limitations: no limitations - History of Present Illness Initial comments: Patient is a pleasant 47-year-old male presenting to the emergency department with concerns for low back pain. Patient does have history of chronic low back pain over the last 13 years. Patient states symptoms have worsened over the past week or so. No weakness. No incontinence or retention of bowel or bladder. He should states he does have history of a couple urinary tract infections previously and does question if he may have one. Patient does have some urgency and dysuria. No fever. - Related Data Home Medications Medication Instructions Recorded Confirmed clonazePAM [KlonoPIN] 0.25 mg PO DAILY 11/22/14 08/14/20 Albuterol Sulfate [Proair Hfa] 1 - 2 puff INHALATION RT-QID PRN 10/07/17 08/14/20 Ibuprofen [Motrin] 800 mg PO TID PRN 10/07/17 08/14/20 Omeprazole [PriLOSEC] 20 mg PO AC-BID 10/07/17 08/14/20 Fluticasone Nasal [place] [Flonase 2 spr EA NOSTRIL DAILY PRN 01/18/18 08/14/20 Nasal [place]] Cetirizine HCl 10 mg PO DAILY 08/14/20 08/14/20 Ondansetron [Zofran] 4 mg PO Q12H PRN 08/14/20 08/14/20 clonazePAM [KlonoPIN] 0.125 mg PO DAILY@1500 08/14/20 08/14/20 Previous Rx's Medication Instructions Recorded Cyclobenzaprine [Flexeril] 10 mg PO TID #12 tab 08/14/20 Ibuprofen [Motrin] 600 mg PO Q8HR PRN #20 tab 08/14/20 dexAMETHasone [Decadron] 0.75 mg PO DAILY #12 tab 08/14/20 Cyclobenzaprine [Flexeril] 10 mg PO TID #20 tab 06/05/21 predniSONE 50 mg PO DAILY #5 tablet 06/05/21 Cyclobenzaprine [Flexeril] 10 mg PO TID PRN #15 tab 12/13/21 predniSONE 50 mg PO DAILY #5 tab 12/13/21 Albuterol Nebulized [Ventolin 2.5 mg INHALATION Q6H 6 Days #75 ml 01/16/22 Nebulized] Ondansetron Odt [Zofran Odt] 4 mg PO Q8HR PRN #15 tab 01/16/22 Cyclobenzaprine [Flexeril] 10 mg PO TID PRN #12 tablet 10/17/22 predniSONE [Deltasone] 20 mg PO BID #10 tab 10/17/22 Allergies Allergy/AdvReac Type Severity Reaction Status Date / Time Penicillins Allergy Anaphylaxis Verified 01/16/22 10:59 Review of Systems ROS Statement: Those systems with pertinent positive or pertinent negative responses have been documented in the HPI. ROS Other: All systems not noted in ROS Statement are negative. Constitutional: Denies: fever Musculoskeletal: Reports: as per HPI, back pain Neurological: Denies: weakness Past Medical History Past Medical History: Asthma Additional Past Medical History / Comment(s): back pain -ddd degenertive disc disease History of Any Multi-Drug Resistant Organisms: None Reported Past Surgical History: No Surgical Hx Reported Past Psychological History: ADD/ADHD, Anxiety Smoking Status: Current every day smoker Past Alcohol Use History: None Reported Past Drug Use History: Marijuana General Exam Limitations: no limitations General appearance: alert, in no apparent distress Head exam: Present: normocephalic Eye exam: Present: normal appearance Neck exam: Present: normal inspection Respiratory exam: Present: normal lung sounds bilaterally Cardiovascular Exam: Present: regular rate, normal rhythm Expanded Peripheral pulses: 2+: Posterior Tibialis (R), Posterior Tibialis (L), Dorsalis Pedis (R), Dorsalis Pedis (L) GI/Abdominal exam: Present: soft. Absent: distended, tenderness, pulsatile mass Extremities exam: Present: normal inspection Back exam: Present: normal inspection Neurological exam: Present: alert. Absent: motor sensory deficit Expanded Sensory exam: Lower Extremity Light Touch: Normal Motor strength exam: RUE: 5, LUE: 5, RLE: 5, LLE: 5 Psychiatric exam: Present: normal affect, normal mood Skin exam: Present: normal color Course Vital Signs 10/17/22 14:01 Temperature 98 F Pulse Rate 89 Respiratory 16 Rate Blood Pressure 126/76 O2 Sat by Pulse 98 Oximetry Medical Decision Making - Medical Decision Making Was pt. sent in by a medical professional or institution ([facility], [facility], urgent care, hospital, or retirement...) When possible be specific @ -No Did you speak to anyone other than the patient for history (EMS, parent, family, police, friend...)? What history was obtained from this source @ -No Did you review nursing and triage notes (agree or disagree)? Why? @ -I reviewed and agree with nursing and triage notes Were old charts reviewed (outside hosp., previous admission, EMS record, old EKG, old radiological studies, urgent care reports/EKG's, retirement records)? Report findings @ -No old charts were reviewed Differential Diagnosis (chest pain, altered mental status, abdominal pain women, abdominal pain men, vaginal bleeding, weakness, fever, dyspnea, syncope, headache, dizziness, GI bleed, back pain, seizure, CVA, palpatations, mental health)? @ -Differential Back Pain: Strain, zoster, cauda equina syndrome, epidural abscess, vertebral osteomyelitis, discitis, fracture, subluxation, disc herniation, DJD, spinal stenosis, dissection, AAA, pancreatitis, peptic ulcer disease, pyelonephritis, kidney stone, this is not meant to be an all-inclusive list. EKG interpreted by me (3pts min.). @ -As above X-rays interpreted by me (1pt min.). @ -None done CT interpreted by me (1pt min.). @ -None done U/S interpreted by me (1pt. min.). @ -None done What testing was considered but not performed or refused? (CT, X-rays, U/S, labs)? Why? @ -None What meds were considered but not given or refused? Why? @ -None Did you discuss the management of the patient with other professionals (professionals i.e. [facility], [facility], lab, RT, psych nurse, social media campaign manager, food mobile driver, teacher, community cultural development officer, pillowcase folder)? Give summary @ -No Was smoking cessation discussed for >3mins.? @ -No Was critical care preformed (if so, how long)? @ -No Were there social determinants of health that impacted care today? How? (Homelessness, low income, unemployed, alcoholism, drug addiction, transportation, low edu. Level, literacy, decrease access to med. care, detention, rehab)? @ -No Was there de-escalation of care discussed even if they declined (Discuss DNR or withdrawal of care, Hospice)? DNR status @ -No What co-morbidities impacted this encounter? (DM, HTN, Smoking, COPD, CAD, Cancer, CVA, ARF, Chemo, Hep., AIDS, mental health diagnosis, sleep apnea, morbid obesity)? @ -None Was patient admitted / discharged? Hospital course, mention meds given and route, prescriptions, significant lab abnormalities, going to OR and other pertinent info. @ -Patient did have some concern for urinary tract infection without evidence of this with urinalysis. Bladder scan shows 77 mL. Patient is advised to follow-up with this. Patient updated on this and need for follow-up. Undiagnosed new problem with uncertain prognosis? @ -No Drug Therapy requiring intensive monitoring for toxicity (Heparin, Nitro, Insulin, Cardizem)? @ -No Were any procedures done? @ -No Diagnosis/symptom? @ -Back pain Acute, or Chronic, or Acute on Chronic? @ -Acute on chronic Uncomplicated (without systemic symptoms) or Complicated (systemic symptoms)? @ -default Side effects of treatment? @ -No Exacerbation, Progression, or Severe Exacerbation? @ -Exacerbation Poses a threat to life or bodily function? How? (Chest pain, [place], [place], pneumonia, PE, COPD, DKA, ARF, appy, cholecystitis, CVA, Diverticulitis, Homicidal, Suicidal, threat to staff... and all critical care pts) @ -No - Lab Data Lab Results 10/17/22 Range/Units 15:15 Urine Color Light Yellow Urine Appearance Clear (Clear) Urine pH 6.5 (5.0-8.0) Ur Specific [place] 1.005 (1.001-1.035) Urine Protein Negative (Negative) Urine Glucose (UA) Negative (Negative) Urine Ketones Negative (Negative) Urine Blood Negative (Negative) Urine Nitrite Negative (Negative) Urine Bilirubin Negative (Negative) Urine Urobilinogen <2.0 (<2.0) mg/dL Ur Leukocyte Esterase Negative (Negative) Disposition Clinical Impression: Low back pain Disposition: HOME SELF-CARE Condition: Stable Instructions (If sedation given, give patient instructions): Acute Low Back Pain (ED) Additional Instructions: Prescription sent to pharmacy. Please do follow-up with primary care physician in the next day or 2 for recheck. Return for weakness, loss of sensation, loss of control of bowel or bladder function, worsening symptoms or other concerns. Prescriptions: predniSONE [Deltasone] 20 mg PO BID #10 tab Cyclobenzaprine [Flexeril] 10 mg PO TID PRN #12 tablet PRN Reason: Pain Is patient prescribed a controlled substance at d/c from ED?: No Referrals: Jesse Bell MD [STAFF PHYSICIAN] - 1-2 days Alicia Blas DO [Doctor of Osteopathic Medicine] - 1-2 days Time of Disposition: 15:50
[2022-10-17 15:27] LABS: Appearance,Urine Clear (Clear); Bilirubin,Urine Negative (Negative); Blood,Urine Negative (Negative); Color,Urine Light Yellow; Glucose,Urine (UA) Negative (Negative); Ketones,Urine Negative (Negative); Leukocyte Esterase,Urine Negative (Negative); Nitrite,Urine Negative (Negative); PH, Urine 6.5 (5.0-8.0); Protein,Urine Negative (Negative); Specific Gravity,Urine 1.005 (1.001-1.035); Urobilinogen,Urine <2.0 mg/dL (<2.0)
[2022-10-17 15:59] VITALS: BP 117/79; PULSE 81; RESP 18; TEMP 97.8
== END 2022-10-17 15:59 | disposition home or self-care (01) ==
LOC: EC 13:44
DX: M54.50 Low back pain, unspecified (principal); J45.909 Unspecified asthma, uncomplicated; F90.9 Attention-deficit hyperactivity disorder, unspecified type; F41.9 Anxiety disorder, unspecified; F17.200 Nicotine dependence, unspecified, uncomplicated; F12.90 Cannabis use, unspecified, uncomplicated; Z79.899 Other long term (current) drug therapy; Z88.0 Allergy status to penicillin
CPT/HCPCS: 51798; 81003; 99283; 96372 ×2; J1170; J1885

== ENCOUNTER 2023-01-23 07:50 | Emergency (ER) | payer OTHER ==
[2023-01-23 07:55] VITALS: TEMP 97.9
[2023-01-23] MEDS ORDERED: KETOROLAC 15 MG/ML 1 ML VIAL IVP STA (08:04)
[2023-01-23] MEDS ORDERED: SODIUM CHLORIDE 0.9% 1,000 ML IV STA (08:04)
[2023-01-23] MEDS ORDERED: ONDANSETRON 4 MG/2 ML VIAL IVP STA (08:05)
--- NOTE | 2023-01-23 08:12 | ED ---
Male Urogenital HPI - General Chief complaint: Urogenital Stated complaint: Lower back/abd pain Time Seen by Provider: 01/23/23 07:52 Source: patient, RN notes reviewed Mode of arrival: ambulatory Limitations: no limitations - History of Present Illness Initial comments: This is a 47-year-old male who presents to the emergency department for right flank pain and suprapubic pain/pressure. Also reports darker urine. Symptoms have been present over the last 2-3 days. He has chronic back pain, but states that this feels different. He's also had nausea and vomiting. Denies any history of kidney stones, however he states that he has had urinary tract infections. However, this was many years ago and he is unsure if symptoms feel the same. Denies any loss of bowel/bladder control or saddle anesthesia. He is taking ibuprofen 800 mg with only minor relief in symptoms. Denies any fevers, chills, sore throat, cough, dyspnea, chest pain, palpitations, diarrhea, or headaches. MD Complaint: other (Suprapubic pain, right flank pain) Onset/Timin -: days(s) - Related Data Home Medications Medication Instructions Recorded Confirmed clonazePAM [KlonoPIN] 0.25 mg PO DAILY 11/22/14 08/14/20 Albuterol Sulfate [Proair Hfa] 1 - 2 puff INHALATION RT-QID PRN 10/07/17 08/14/20 Ibuprofen [Motrin] 800 mg PO TID PRN 10/07/17 08/14/20 Omeprazole [PriLOSEC] 20 mg PO AC-BID 10/07/17 08/14/20 Fluticasone Nasal [place] [Flonase 2 spr EA NOSTRIL DAILY PRN 01/18/18 08/14/20 Nasal [place]] Cetirizine HCl 10 mg PO DAILY 08/14/20 08/14/20 Ondansetron [Zofran] 4 mg PO Q12H PRN 08/14/20 08/14/20 clonazePAM [KlonoPIN] 0.125 mg PO DAILY@1500 08/14/20 08/14/20 Previous Rx's Medication Instructions Recorded Cyclobenzaprine [Flexeril] 10 mg PO TID #12 tab 08/14/20 Ibuprofen [Motrin] 600 mg PO Q8HR PRN #20 tab 08/14/20 dexAMETHasone [Decadron] 0.75 mg PO DAILY #12 tab 08/14/20 Cyclobenzaprine [Flexeril] 10 mg PO TID #20 tab 06/05/21 predniSONE 50 mg PO DAILY #5 tablet 06/05/21 Cyclobenzaprine [Flexeril] 10 mg PO TID PRN #15 tab 12/13/21 predniSONE 50 mg PO DAILY #5 tab 12/13/21 Albuterol Nebulized [Ventolin 2.5 mg INHALATION Q6H 6 Days #75 ml 01/16/22 Nebulized] Ondansetron Odt [Zofran Odt] 4 mg PO Q8HR PRN #15 tab 01/16/22 Cyclobenzaprine [Flexeril] 10 mg PO TID PRN #12 tablet 10/17/22 predniSONE [Deltasone] 20 mg PO BID #10 tab 10/17/22 Ketorolac [Toradol] 10 mg PO Q6HR PRN #12 tab 01/23/23 Ondansetron Odt [Zofran Odt] 4 mg PO Q8HR PRN #15 tab 01/23/23 Allergies Allergy/AdvReac Type Severity Reaction Status Date / Time Penicillins Allergy Anaphylaxis Verified 01/23/23 07:55 Review of Systems ROS Statement: Those systems with pertinent positive or pertinent negative responses have been documented in the HPI. ROS Other: All systems not noted in ROS Statement are negative. Past Medical History Past Medical History: Asthma Additional Past Medical History / Comment(s): back pain -ddd degenertive disc disease History of Any Multi-Drug Resistant Organisms: None Reported Past Surgical History: No Surgical Hx Reported Past Psychological History: ADD/ADHD, Anxiety Smoking Status: Current every day smoker Past Alcohol Use History: None Reported Past Drug Use History: Marijuana General Exam Limitations: no limitations General appearance: alert, in no apparent distress Head exam: Present: atraumatic, normocephalic, normal inspection Respiratory exam: Present: normal lung sounds bilaterally. Absent: respiratory distress, wheezes, rales, rhonchi, stridor Cardiovascular Exam: Present: regular rate, normal rhythm, normal heart sounds. Absent: systolic murmur, diastolic murmur, rubs, gallop, clicks GI/Abdominal exam: Present: soft, normal bowel sounds. Absent: distended, tenderness, guarding, rebound, rigid Back exam: Present: normal inspection, full ROM, CVA tenderness (R). Absent: CVA tenderness (L) Neurological exam: Present: alert, oriented X3, CN II-XII intact Psychiatric exam: Present: normal affect, normal mood Skin exam: Present: warm, dry, intact, normal color. Absent: rash Course Vital Signs 01/23/23 01/23/23 01/23/23 07:52 09:39 11:16 Temperature 97.9 F Pulse Rate 90 75 73 Respiratory 16 18 18 Rate Blood Pressure 125/84 123/81 127/83 O2 Sat by Pulse 99 99 99 Oximetry Medical Decision Making - Medical Decision Making This is a 47-year-old male who presents to the emergency department for right flank pain. Was pt. sent in by a medical professional or institution? @ -No Did you speak to anyone other than the patient for history? @ -His Did you review nursing and triage notes? @ -Yes, and I agree, it is accurate with regards to the patient's symptoms. Were old charts reviewed? @ -No Differential Diagnosis? @ -Differential Back Pain: Strain, zoster, cauda equina syndrome, epidural abscess, vertebral osteomyelitis, discitis, fracture, subluxation, disc herniation, DJD, spinal stenosis, dissection, AAA, pancreatitis, peptic ulcer disease, pyelonephritis, kidney stone, this is not meant to be an all-inclusive list. CT interpreted by me (1pt min.)? @ -Computed tomography scan of the abdomen and pelvis obtained. My interpretation identifies no evidence of ureteral calculus or bowel wall thickening. What testing was considered but not performed? (CT, X-rays, U/S, labs)? Why? @ -None What meds were considered but not given? Why? @ -None Did you discuss the management of the patient with other professionals? @ -No Did you reconcile home meds? @ -No Was smoking cessation discussed for >3mins.? @ -No Was critical care preformed (if so, how long)? @ -No Were there social determinants of health that impacted care today? How? (Homelessness, low income, unemployed, alcoholism, drug addiction, farley sportation, low edu. Level, literacy, decrease access to med. care, detention, rehab)? @ -No Was there de-escalation of care discussed even if they declined? (Discuss DNR or withdrawal of care, Hospice)? @ -No What co-morbidities impacted this encounter? (DM, HTN, Smoking, COPD, CAD, Cancer, CVA, Hep., AIDS, mental health diagnosis, sleep apnea, morbid obesity)? @ -DDD Was patient admitted / discharged? @ -Discharged. Lab work obtained and found to be nonactionable. Computed tomography scan of the abdomen and pelvis obtained revealing cholelithiasis and a distended gallbladder. Patient states that this is a chronic finding for him. He denies any right upper quadrant pain, and states that he has never been symptomatic with this. He has been told that if he continues to remain asymptomatic, nothing should be done for this. Ultrasound of gallbladder was al so obtained. There is no evidence for an acute cholecystitis. It did again identify the cholelithiasis as well as gallbladder sludge. Advised the patient that he could develop an acute cholecystitis at any time and he needs to return if he develops any symptoms related to this. His current symptoms resolved in the emergency department with Toradol, Zofran, and IV fluids. Prescription for Toradol and Zofran provided with dosing instructions reviewed. Undiagnosed new problem with uncertain prognosis? @ -None Drug Therapy requiring intensive monitoring for toxicity (Heparin, Nitro, Insulin, Cardizem)? @ -None Were any procedures done? @ -None Diagnosis/symptom? @ -Right flank pain Acute, or Chronic, or Acute on Chronic? @ -Acute Uncomplicated (without systemic symptoms) or Complicated (systemic symptoms)? @ -Uncomplicated Side effects of treatment? @ -None Exacerbation, Progression, or Severe Exacerbation] @ -Not applicable Poses a threat to life or bodily function? @ -No Diagnosis/symptom? @ -Cholelithiasis Acute, or Chronic, or Acute on Chronic? @ -Chronic Uncomplicated (without systemic symptoms) or Complicated (systemic symptoms)? @ -Uncomplicated Side effects of treatment? @ -None Exacerbation, Progression, or Severe Exacerbation] @ -No Poses a threat to life or bodily function? @ -No Return precautions reviewed in depth, the patient is instructed to return to the emergency department with any new, worsening, or concerning symptoms. Patient verbalized understanding. This case was discussed in detail with the attending ED physician, Dr. Tatum. Presentation, findings, and treatment plan discussed in detail as well. - Lab Data Result diagrams: 01/23/23 08:18 01/23/23 08:18 Lab Results 01/23/23 01/23/23 01/23/23 Range/Units 08:18 08:18 08:18 WBC 9.8 (3.8-10.6) k/uL RBC 5.08 (4.30-5.90) m/uL Hgb 16.1 (13.0-17.5) gm/dL Hct 47.9 (39.0-53.0) % MCV 94.2 (80.0-100.0) fL MCH 31.7 (25.0-35.0) pg MCHC 33.7 (31.0-37.0) g/dL RDW 13.2 (11.5-15.5) % Plt Count 227 (150-450) k/uL MPV 7.6 Neutrophils % 82 % Lymphocytes % 11 % Monocytes % 4 % Eosinophils % 1 % Basophils % 0 % Neutrophils # 8.0 H (1.3-7.7) k/uL Lymphocytes # 1.1 (1.0-4.8) k/uL Monocytes # 0.4 (0-1.0) k/uL Eosinophils # 0.1 (0-0.7) k/uL Basophils # 0.0 (0-0.2) k/uL Sodium 140 (137-145) mmol/L Potassium 3.8 (3.5-5.1) mmol/L Chloride 103 (98-107) mmol/L Carbon Dioxide 30 (22-30) mmol/L Anion Gap 7 mmol/L BUN 10 (9-20) mg/dL Creatinine 0.72 (0.66-1.25) mg/dL Est GFR (CKD-EPI)AfAm >90 (>60 ml/min/1.73 sqM) Est GFR (CKD-EPI)NonAf >90 (>60 ml/min/1.73 sqM) Glucose 125 H (74-99) mg/dL Plasma Lactic Acid Slim (0.7-2.0) mmol/L Calcium 8.5 (8.4-10.2) mg/dL Total Bilirubin 0.5 (0.2-1.3) mg/dL AST 17 (17-59) U/L ALT 16 (4-49) U/L Alkaline Phosphatase 51 (38-126) U/L Total Protein 6.8 (6.3-8.2) g/dL Albumin 4.2 (3.5-5.0) g/dL Urine Color Yellow Urine Appearance Clear (Clear) Urine pH 7.5 (5.0-8.0) Ur Specific [place] 1.015 (1.001-1.035) Urine Protein Negative (Negative) Urine Glucose (UA) Negative (Negative) Urine Ketones Negative (Negative) Urine Blood Negative (Negative) Urine Nitrite Negative (Negative) Urine Bilirubin Negative (Negative) Urine Urobilinogen <2.0 (<2.0) mg/dL Ur Leukocyte Esterase Negative (Negative) 01/23/23 Range/Units 08:18 WBC (3.8-10.6) k/uL RBC (4.30-5.90) m/uL Hgb (13.0-17.5) gm/dL Hct (39.0-53.0) % MCV (80.0-100.0) fL MCH (25.0-35.0) pg MCHC (31.0-37.0) g/dL RDW (11.5-15.5) % Plt Count (150-450) k/uL MPV Neutrophils % % Lymphocytes % % Monocytes % % Eosinophils % % Basophils % % Neutrophils # (1.3-7.7) k/uL Lymphocytes # (1.0-4.8) k/uL Monocytes # (0-1.0) k/uL Eosinophils # (0-0.7) k/uL Basophils # (0-0.2) k/uL Sodium (137-145) mmol/L Potassium (3.5-5.1) mmol/L Chloride (98-107) mmol/L Carbon Dioxide (22-30) mmol/L Anion Gap mmol/L BUN (9-20) mg/dL Creatinine (0.66-1.25) mg/dL Est GFR (CKD-EPI)AfAm (>60 ml/min/1.73 sqM) Est GFR (CKD-EPI)NonAf (>60 ml/min/1.73 sqM) Glucose (74-99) mg/dL Plasma Lactic Acid Slim 1.0 (0.7-2.0) mmol/L Calcium (8.4-10.2) mg/dL Total Bilirubin (0.2-1.3) mg/dL AST (17-59) U/L ALT (4-49) U/L Alkaline Phosphatase (38-126) U/L Total Protein (6.3-8.2) g/dL Albumin (3.5-5.0) g/dL Urine Color Urine Appearance (Clear) Urine pH (5.0-8.0) Ur Specific [place] (1.001-1.035) Urine Protein (Negative) Urine Glucose (UA) (Negative) Urine Ketones (Negative) Urine Blood (Negative) Urine Nitrite (Negative) Urine Bilirubin (Negative) Urine Urobilinogen (<2.0) mg/dL Ur Leukocyte Esterase (Negative) - Radiology Data Radiology results: report reviewed, image reviewed Disposition Clinical Impression: Right flank pain, Cholelithiasis Disposition: HOME SELF-CARE Instructions (If sedation given, give patient instructions): Gallstones (ED), Flank Pain (ED) Additional Instructions: Return to the emergency department with any new, worsening, or concerning symptoms. You can take the Toradol every 6 hours as needed for pain. Do not ta ke ibuprofen or other anti-inflammatories when taking this. You may take it with Tylenol. The Zofran can be taken up to every 8 hours as needed for nausea and vomiting. Follow up with your primary care provider in 1-2 days. Prescriptions: Ketorolac [Toradol] 10 mg PO Q6HR PRN #12 tab PRN Reason: Pain Ondansetron Odt [Zofran Odt] 4 mg PO Q8HR PRN #15 tab PRN Reason: Nausea And Vomiting Is patient prescribed a controlled substance at d/c from ED?: No Referrals: None,Stated [REFERRING] - 1-2 days
[2023-01-23 08:38] LABS: Appearance,Urine Clear (Clear); Bilirubin,Urine Negative (Negative); Blood,Urine Negative (Negative); Color,Urine Yellow; Glucose,Urine (UA) Negative (Negative); Ketones,Urine Negative (Negative); Leukocyte Esterase,Urine Negative (Negative); Nitrite,Urine Negative (Negative); PH, Urine 7.5 (5.0-8.0); Protein,Urine Negative (Negative); Specific Gravity,Urine 1.015 (1.001-1.035); Urobilinogen,Urine <2.0 mg/dL (<2.0)
[2023-01-23 08:45] LABS: Basophils % (A) 0 %; Eosinophils # (A) 0.1 k/uL (0-0.7); Eosinophils % (A) 1 %; HCT 47.9 % (39.0-53.0); HGB 16.1 gm/dL (13.0-17.5); Lymphocytes # (A) 1.1 k/uL (1.0-4.8); Lymphocytes % (A) 11 %; MCH 31.7 pg (25.0-35.0); MCHC 33.7 g/dL (31.0-37.0); MCV 94.2 fL (80.0-100.0); Mean Platelet Volume 7.6; Monocytes # (A) 0.4 k/uL (0-1.0); Monocytes % (A) 4 %; Neutrophils % (A) 82 %; Platelet Count 227 k/uL (150-450); RBC 5.08 m/uL (4.30-5.90); RDW 13.2 % (11.5-15.5); WBC 9.8 k/uL (3.8-10.6)
[2023-01-23 08:52] LABS: ALT 16 U/L (4-49); AST 17 U/L (17-59); African American GFR (CKD) >90 (>60 ml/min/1.73 sqM); Albumin 4.2 g/dL (3.5-5.0); Alkaline Phosphatase 51 U/L (38-126); Anion Gap 7 mmol/L; Blood Urea Nitrogen 10 mg/dL (9-20); Calcium 8.5 mg/dL (8.4-10.2); Carbon Dioxide 30 mmol/L (22-30); Chloride 103 mmol/L (98-107); Glucose 125 mg/dL (74-99); Non-African American GFR(CKD) >90 (>60 ml/min/1.73 sqM); Potassium 3.8 mmol/L (3.5-5.1); Sodium 140 mmol/L (137-145); Total Bilirubin 0.5 mg/dL (0.2-1.3); Total Protein 6.8 g/dL (6.3-8.2)
--- NOTE | 2023-01-23 08:52 | CT ---
EXAMINATION TYPE: CT abdomen pelvis wo con DATE OF EXAM: 01/23/2023 COMPARISON: None INDICATION: Right flank pain DLP: 408.3 mGycm, Automated exposure control for dose reduction was used. CONTRAST: 0 mL of Isovue 300. Study performed without Oral Contrast TECHNIQUE: Axial images were obtained from above the diaphragm to the pubic rami in the axial plane a t 5 mm thick sections. Reconstructed images are reviewed on the computer in the coronal plane. FINDINGS: Limited CT sections are obtained the lung bases. The lung bases are clear. CT ABDOMEN: Liver: Normal Spleen: Normal Pancreas: Normal Adrenal glands: The adrenal glands are normal. Gallbladder: There may be debris or gallstones within a distended gallbladder. Kidneys: No masses are evident. No hydronephrosis is present. No cysts are present. No renal stone s are identified. No hydroureter is evident. Aorta: Vascular calcification is within the aorta. Inferior vena cava: Normal. CT PELVIS: Loops of bowel within the abdomen and pelvis are normal. The study is without oral contrast limit ing bowel evaluation. Appendix: Normal as visualized. Urinary bladder: Normal. Genitourinary structures: Prostate is unremarkable. Osseous structures: No suspicious lytic or sclerotic lesions. IMPRESSIONS: 1. Distended gallbladder with gallstone and/or debris. No suspicious inflammatory change or gallblad [place] wall thickening identified. Consider additional evaluation with ultrasound. 2. No suspicious renal stones. The appendix appears normal.
[2023-01-23 09:39] VITALS: RESP 18
--- NOTE | 2023-01-23 10:38 | US ---
EXAMINATION TYPE: US gallbladder DATE OF EXAM: 01/23/2023 COMPARISON: Same day CT CLINICAL INDICATION: Male, 47 years old with history of Gallstones and distention on CT scan; Pain, a bnormal CT TECHNIQUE: Multiple sonographic images of the right upper quadrant are obtained. FINDINGS: EXAM MEASUREMENTS: Liver Length: 15.6 cm Gallbladder Wall: 0.3 cm CBD: 0.4 cm Right Kidney: 12.2 x 4.4 x 4.9 cm JIG BORER NOTES: Pancreas: wnl Liver: Mild increased echogenicity of the liver parenchyma may represent mild fatty infiltration. Gallbladder: Borderline hydropic approaching 3.9 cm wide. Sludge, non-mobile gallstone in neck with other stones at dependent portion measuring up to 1.2 cm. Wall thickness upper limits of normal Evidence for sonographic [place]'s sign: No CBD: wnl Right Kidney: wnl IMPRESSION: 1. Borderline gallbladder hydrops. There is extensive sludge and cholelithiasis. Some stones are fixe d at the neck of the gallbladder. No wall thickening, surrounding fluid, or sonographic [place] sign t o clearly indicate acute cholecystitis at this time. However, given the changes, patient should be mo nitored for impending acute cholecystitis. HIDA scan if clinically indicated. 2. No biliary ductal dilatation.
[2023-01-23] MEDS ORDERED: ACET/COD 300 MG/30 MG STARTER PACK 6 TAB BTL PO STA (10:52)
[2023-01-23 11:20] VITALS: BP 127/83; PULSE 73
== END 2023-01-23 11:20 | disposition home or self-care (01) ==
LOC: EC 07:50
DX: K80.20 Calculus of gallbladder without cholecystitis without obstruction (principal); J45.909 Unspecified asthma, uncomplicated; F41.9 Anxiety disorder, unspecified; F17.200 Nicotine dependence, unspecified, uncomplicated; F12.90 Cannabis use, unspecified, uncomplicated; Z88.0 Allergy status to penicillin; Z79.899 Other long term (current) drug therapy
CPT/HCPCS: 36415; 80053; 83605; 85025; 81003; 76705; 74176; 99284; 96374; 96375; 96361; J2405; J1885

== ENCOUNTER 2023-02-20 17:07 | Emergency (ER) | payer OTHER ==
[2023-02-20 17:29] VITALS: RESP 18
[2023-02-20] MEDS ORDERED: KETOROLAC 15 MG/ML 1 ML VIAL IVP STA (18:53)
[2023-02-20 19:20] LABS: Basophils % (A) 0 %; Eosinophils % (A) 1 %; HCT 49.5 % (39.0-53.0); HGB 16.4 gm/dL (13.0-17.5); Lymphocytes # (A) 1.3 k/uL (1.0-4.8); Lymphocytes % (A) 19 %; MCH 31.9 pg (25.0-35.0); MCHC 33.1 g/dL (31.0-37.0); MCV 96.2 fL (80.0-100.0); Monocytes # (A) 0.4 k/uL (0-1.0); Monocytes % (A) 5 %; Neutrophils # (A) 5.3 k/uL (1.3-7.7); Neutrophils % (A) 74 %; Platelet Count 253 k/uL (150-450); RBC 5.15 m/uL (4.30-5.90); RDW 12.5 % (11.5-15.5); WBC 7.1 k/uL (3.8-10.6)
--- NOTE | 2023-02-20 19:29 | ED ---
Abdominal Pain HPI - General Chief Complaint: Abdominal Pain Stated Complaint: abd/back pain Time Seen by Provider: 02/20/23 18:48 Source: patient, RN notes reviewed Mode of arrival: ambulatory Limitations: no limitations - History of Present Illness Initial Comments: Patient is 47-year-old male presenting to the emergency room with complaints of abdominal pain ongoing for approximately 2 days which he describes as a gas-like pain that is generalized with occasional localization in the mid abdomen. He denies any nausea, vomiting, diarrhea or constipation. He is also complaining increasing chronic back pain without any new trauma, weakness, radiculopathy, bowel or bladder incontinence, saddle. Seizure or other red flag symptoms for cauda equina. He has not taken any pain medication to treat his symptoms. He reports that he typically takes [id number] Tylenol or ibuprofen for pain as needed. In addition to his chronic back pain he has a past medical history significant for asthma and recently diagnosed biliary sludge wit hout any evidence of acute cholecystitis. - Related Data Home Medications Medication Instructions Recorded Confirmed clonazePAM [KlonoPIN] 0.25 mg PO DAILY 11/22/14 08/14/20 Albuterol Sulfate [Proair Hfa] 1 - 2 puff INHALATION RT-QID PRN 10/07/17 Ibuprofen [Motrin] 800 mg PO TID PRN 10/07/17 08/14/20 Omeprazole [PriLOSEC] 20 mg PO AC-BID 10/07/17 08/14/20 Fluticasone Nasal [place] [Flonase 2 spr EA NOSTRIL DAILY PRN 01/18/18 08/14/20 Nasal [place]] Cetirizine HCl 10 mg PO DAILY 08/14/20 08/14/20 Ondansetron [Zofran] 4 mg PO Q12H PRN 08/14/20 08/14/20 clonazePAM [KlonoPIN] 0.125 mg PO DAILY@1500 08/14/20 08/14/20 Previous Rx's Medication Instructions Recorded Cyclobenzaprine [Flexeril] 10 mg PO TID #12 tab 08/14/20 Ibuprofen [Motrin] 600 mg PO Q8HR PRN #20 tab 08/14/20 dexAMETHasone [Decadron] 0.75 mg PO DAILY #12 tab 08/14/20 Cyclobenzaprine [Flexeril] 10 mg PO TID #20 tab 06/05/21 predniSONE 50 mg PO DAILY #5 tablet 06/05/21 Cyclobenzaprine [Flexeril] 10 mg PO TID PRN #15 tab 12/13/21 predniSONE 50 mg PO DAILY #5 tab 12/13/21 Albuterol Nebulized [Ventolin 2.5 mg INHALATION Q6H 6 Days #75 ml 01/16/22 Nebulized] Ondansetron Odt [Zofran Odt] 4 mg PO Q8HR PRN #15 tab 01/16/22 Cyclobenzaprine [Flexeril] 10 mg PO TID PRN #12 tablet 10/17/22 predniSONE [Deltasone] 20 mg PO BID #10 tab 10/17/22 Ketorolac [Toradol] 10 mg PO Q6HR PRN #12 tab 01/23/23 Ondansetron Odt [Zofran Odt] 4 mg PO Q8HR PRN #15 tab 01/23/23 Allergies Allergy/AdvReac Type Severity Reaction Status Date / Time Penicillins Allergy Anaphylaxis Verified 02/20/23 17:29 Review of Systems ROS Statement: Those systems with pertinent positive or pertinent negative responses have been documented in the HPI. ROS Other: All systems not noted in ROS Statement are negative. Past Medical History Past Medical History: Asthma Additional Past Medical History / Comment(s): back pain -ddd degenertive disc disease History of Any Multi-Drug Resistant Organisms: None Reported Past Surgical History: No Surgical Hx Reported Past Psychological History: ADD/ADHD, Anxiety Smoking Status: Current every day smoker Past Alcohol Use History: None Reported Past Drug Use History: Marijuana General Exam Limitations: no limitations General appearance: alert, in no apparent distress Head exam: Present: atraumatic, normocephalic, normal inspection Eye exam: Present: normal appearance, PERRL, EOMI. Absent: scleral icterus, conjunctival injection, periorbital swelling ENT exam: Present: normal exam, mucous membranes moist Neck exam: Present: normal inspection, full ROM Respiratory exam: Present: normal lung sounds bilaterally. Absent: respiratory distress, wheezes, rales, rhonchi, stridor Cardiovascular Exam: Present: regular rate, normal rhythm, normal heart sounds. Absent: systolic murmur, diastolic murmur, rubs, gallop, clicks GI/Abdominal exam: Present: soft, normal bowel sounds. Absent: distended, tenderness, guarding, rebound, rigid, organomegaly, mass Rectal exam: Present: deferred Extremities exam: Present: normal inspection, full ROM. Absent: tenderness, pedal edema, joint swelling Back exam: Present: normal inspection. Absent: tenderness, muscle spasm, paraspinal tenderness, vertebral tenderness Neurological exam: Present: alert, oriented X3, CN II-XII intact Psychiatric exam: Present: normal affect, normal mood Skin exam: Present: warm, dry, intact, normal color. Absent: rash Course Vital Signs 02/20/23 02/20/23 17:26 20:00 Temperature 97.7 F 97.6 F Pulse Rate 103 H 62 Respiratory 18 18 Rate Blood Pressure 115/78 121/68 O2 Sat by Pulse 98 100 Oximetry Medical Decision Making - Medical Decision Making Was pt. sent in by a medical professional or institution (, PA, SALVAGE INSPECTOR, urgent care, hospital, or intermediate...) When possible be specific @ -No Did you speak to anyone other than the patient for history (EMS, parent, family, police, friend...)? What history was obtained from this source @ -No Did you review nursing and triage notes (agree or disagree)? Why? @ -I reviewed and agree with nursing and triage notes except abdominal pain not radiating to back back pain is chronic and not associated with abdominal pain. Were old charts reviewed (outside hosp., previous admission, EMS record, old EKG, old radiological studies, urgent care reports/EKG's, intermediate records)? Report findings @ -Yes, I reviewed CT of the abdomen and pelvis and ultrasound of gallbladder polyp completed on 01/23/2023. Differential Diagnosis (chest pain, altered mental status, abdominal pain women, abdominal pain men, vaginal bleeding, weakness, fever, dyspnea, syncope, headache, dizziness, GI bleed, back pain, seizure, CVA, palpatations, mental health, musculoskeletal)? @ -Differential Abdominal Pain Men: Appendicitis, cholecystitis, diverticulosis, ischemic bowel, pancreatitis, hepatitis, UTI, gastroenteritis, AAA, incarcerated hernia, bowel obstruction, constipation, inflammatory bowel, hepatitis, peptic ulcer disease, splenic infarction, perforated viscus, testicular torsion, this is not meant to be an all-inclusive list EKG interpreted by me (3pts min.). @ -None done X-rays interpreted by me (1pt min.). @ -KUB: Normal bowel gas pattern. No evidence of small or large bowel dilatation. CT interpreted by me (1pt min.). @ -None done U/S interpreted by me (1pt. min.). @ -None done What testing was considered but not performed or refused? (CT, X-rays, U/S, labs)? Why? @ -Computed tomography scan and ultrasound of abdomen considered but deferred due to recent CT of the abdomen and ultrasound of the gallbladder and lack of associated symptoms with abdominal pain on current presentation. What meds were considered but not given or refused? Why? @ -None Did you discuss the management of the patient with other professionals (professionals i.e. , PA, SALVAGE INSPECTOR, lab, RT, psych nurse, oncology social work, care team coordinator scheduler, teacher, project control officer, caseworker)? Give summary @ -No Was smoking cessation discussed for >3mins.? @ -No Was critical care preformed (if so, how long)? @ -No Were there social determinants of health that impacted care today? How? (Homelessness, low income, unemployed, alcoholism, drug addiction, transportation, low edu. Level, literacy, decrease access to med. care, skilled nursing, rehab)? @ -No Was there de-escalation of care discussed even if they declined (Discuss DNR or withdrawal of care, Hospice)? DNR status @ -No What co-morbidities impacted this encounter? (DM, HTN, Smoking, COPD, CAD, Cancer, CVA, ARF, Chemo, Hep., AIDS, mental health diagnosis, sleep apnea, morbid obesity)? @ -None Was patient admitted / discharged? Hospital course, mention meds given and route, prescriptions, significant lab abnormalities, going to OR and other pertinent info. @ -47-year-old male presenting to the emergency room with complaints of abdominal pain ongoing for 2 days; she states that pain is gas-like in nature and scattered throughout his abdomen without any specific location. Denies any associated symptoms including any nausea, vomiting, diarrhea or constipation. Also reports slight increase in chronic back pain without any radiculopathy or red flag symptoms of cauda equina. Will give Toradol for pain and obtain KUB; will defer computed tomography scan and ultrasound of abdomen the absence of associated symptoms with abdominal pain and computed tomography scan of abdomen within the last 30 days. No indication for diagnostic imaging regarding back pain as no trauma with unknown change characteristics of back pain. Will obtain laboratory studies of CBC, CMP, lactic acid, amylase and lipase. Some pain improvement with Toradol. KUB negative for acute process. CBC negative. CMP shows low BUN with normal creatinine and elevated glucose at 103 no other abnormalities. Normal liver enzymes, amylase and lipase normal. Elect rolytes normal. Findings discussed with patient. Patient to disclosed that he was taking more than the daily recommended probiotic, he is on a regular basis. Advised patient to take probiotics per box instructions. Advised no indication for further diagnostic imaging or laboratory studies at this time. Encourage follow-up with primary care provider denies use of [id number] Tylenol as needed for chronic pain. Will discharge in stable condition moving his [id number] Tylenol or Motrin as needed for abdominal and back pain ambulation as tolerated and follow-up with primary care provider. Undiagnosed new problem with uncertain prognosis? @ -No Drug Therapy requiring intensive monitoring for toxicity (Heparin, Nitro, Insulin, Cardizem)? @ -No Were any procedures done? @ -No Diagnosis/symptom? @ -Back pain Acute, or Chronic, or Acute on Chronic? @ -Chronic Uncomplicated (without systemic symptoms) or Complicated (systemic symptoms)? @ -Uncomplicated Side effects of treatment? @ -No Exacerbation, Progression, or Severe Exacerbation? @ -No Poses a threat to life or bodily function? How? (Chest pain, [place], [place], pneumonia, PE, COPD, DKA, ARF, appy, cholecystitis, CVA, Diverticulitis, Homicidal, Suicidal, threat to staff... and all critical care pts) @ -No Diagnosis/symptom? @ -Abdominal Acute, or Chronic, or Acute on Chronic? @ -Acute Uncomplicated (without systemic symptoms) or Complicated (systemic symptoms)? @ -Uncomplicated Side effects of treatment? @ -none Exacerbation, Progression, or Severe Exacerbation] @ -no Poses a threat to life or bodily function? @ -no Case discussed with Dr. Hyman - Lab Data Result diagrams: 02/20/23 19:06 02/20/23 19:06 Lab Results 02/20/23 02/20/23 02/20/23 Range/Units 19:06 19:06 19:06 WBC 7.1 (3.8-10.6) k/uL RBC 5.15 (4.30-5.90) m/uL Hgb 16.4 (13.0-17.5) gm/dL Hct 49.5 (39.0-53.0) % MCV 96.2 (80.0-100.0) fL MCH 31.9 (25.0-35.0) pg MCHC 33.1 (31.0-37.0) g/dL RDW 12.5 (11.5-15.5) % Plt Count 253 (150-450) k/uL MPV 7.0 Neutrophils % 74 % Lymphocytes % 19 % Monocytes % 5 % Eosinophils % 1 % Basophils % 0 % Neutrophils # 5.3 (1.3-7.7) k/uL Lymphocytes # 1.3 (1.0-4.8) k/uL Monocytes # 0.4 (0-1.0) k/uL Eosinophils # 0.0 (0-0.7) k/uL Basophils # 0.0 (0-0.2) k/uL Sodium 141 (137-145) mmol/L Potassium 3.9 (3.5-5.1) mmol/L Chloride 101 (98-107) mmol/L Carbon Dioxide 28 (22-30) mmol/L Anion Gap 12 mmol/L BUN 8 L (9-20) mg/dL Creatinine 0.75 (0.66-1.25) mg/dL Est GFR (CKD-EPI)AfAm >90 (>60 ml/min/1.73 sqM) Est GFR (CKD-EPI)NonAf >90 (>60 ml/min/1.73 sqM) Glucose 103 H (74-99) mg/dL Plasma Lactic Acid Slim 0.9 (0.7-2.0) mmol/L Calcium 8.9 (8.4-10.2) mg/dL Total Bilirubin 1.1 (0.2-1.3) mg/dL AST 19 (17-59) U/L ALT 19 (4-49) U/L Alkaline Phosphatase 58 (38-126) U/L Total Protein 7.2 (6.3-8.2) g/dL Albumin 4.5 (3.5-5.0) g/dL Amylase 52 (30-110) U/L Lipase 52 (23-300) U/L - Radiology Data Radiology results: report reviewed, image reviewed Disposition Clinical Impression: Abdominal pain, Chronic back pain Disposition: HOME SELF-CARE Condition: Stable Instructions (If sedation given, give patient instructions): Abdominal Pain (ED), Chronic Back Pain (DC), Lower Back Exercises (ED) Additional Instructions: Continue ibuprofen for pain as needed. Range of motion as tolerated encouraged. Avoid heavy lifting and bedrest. Avoid foods that may cause gastric irritation and upset such as spicy or acidic foods. Please follow-up with your primary care provider. Please return to the Emergency Department if symptoms worsen or any other concerns. Is patient prescribed a controlled substance at d/c from ED?: No Referrals: Nonstaff,Physician [Primary Care Provider] - 1-2 days Time of Disposition: 19:56
[2023-02-20 19:31] LABS: ALT 19 U/L (4-49); AST 19 U/L (17-59); African American GFR (CKD) >90 (>60 ml/min/1.73 sqM); Albumin 4.5 g/dL (3.5-5.0); Alkaline Phosphatase 58 U/L (38-126); Amylase 52 U/L (30-110); Anion Gap 12 mmol/L; Blood Urea Nitrogen 8 mg/dL (9-20); Calcium 8.9 mg/dL (8.4-10.2); Carbon Dioxide 28 mmol/L (22-30); Chloride 101 mmol/L (98-107); Glucose 103 mg/dL (74-99); Lipase 52 U/L (23-300); Non-African American GFR(CKD) >90 (>60 ml/min/1.73 sqM); Potassium 3.9 mmol/L (3.5-5.1); Sodium 141 mmol/L (137-145); Total Bilirubin 1.1 mg/dL (0.2-1.3); Total Protein 7.2 g/dL (6.3-8.2)
--- NOTE | 2023-02-20 19:37 | XR ---
EXAMINATION TYPE: XR KUB DATE OF EXAM: 02/20/2023 7:20 PM INDICATION: Patient age:Male; 47 years old; Reason for study: abdominal pain; COMPARISON: 01/23/2023 CT TECHNIQUE: One radiographic view of the abdomen was obtained. FINDINGS: The bowel gas pattern is nonspecific without dilated loops of small or large bowel. There i s no evidence for organomegaly or pneumoperitoneum. The osseous structures are intact. No abnormal calcifications are present. Fecal material and gas are demonstrated throughout the colon and rectum. IMPRESSION: Nonspecific bowel gas pattern without radiographic evidence for acute process.
[2023-02-20 20:01] VITALS: BP 121/68; PULSE 62; TEMP 97.6
== END 2023-02-20 20:17 | disposition home or self-care (01) ==
LOC: EC 17:07
DX: R10.9 Unspecified abdominal pain (principal); G89.29 Other chronic pain; M54.9 Dorsalgia, unspecified; J45.909 Unspecified asthma, uncomplicated; F41.9 Anxiety disorder, unspecified; F90.9 Attention-deficit hyperactivity disorder, unspecified type; F17.200 Nicotine dependence, unspecified, uncomplicated; F12.90 Cannabis use, unspecified, uncomplicated; Z79.51 Long term (current) use of inhaled steroids; Z79.899 Other long term (current) drug therapy; Z88.0 Allergy status to penicillin
CPT/HCPCS: 36415; 80053; 82150; 83605; 83690; 85025; 74018; 99284; 96374; J1885